=== PATIENT | female | born 1995 | race Caucasian/White ===

== ENCOUNTER 2019-09-30 23:00 | Emergency (ER) | payer OTHER ==
[2019-10-01 00:03] VITALS: BP 134/89; PULSE 94; RESP 18; TEMP 97.8
--- NOTE | 2019-10-01 01:35 | ED ---
General Adult HPI - General Chief complaint: [place]ick/Exposure Stated complaint: [facility]- blood in eye Time Seen by Provider: 10/01/19 00:23 Source: patient, RN notes reviewed, old records reviewed Mode of arrival: ambulatory Limitations: no limitations - History of Present Illness Initial comments: 24-year-old female patient presents to ED for evaluation of possible exposure to blood in her right eye. Patient reports that she was removing an IV from a recently patient and some sort of fluid came out and contacted her right eye. Patient reports that after she vigorously irrigated her eye for an extended period of time. Pt states that she has low concern for the patient having blood-borne pathogens. However she was still like them to be checked as well as herself. Declines prophylaxis. Denies any acute complaints. Systemic: Pt denies fatigue, fever/chills, rash. Pt denies weakness, night sweats, weight loss. Neuro: Pt denies headache, visual disturbances, syncope or pre-syncope. HEENT: Pt denies ocular discharge or irritation, otalgia, rhinorrhea, pharyngitis or notable lymphadenopathy. Cardiopulmonary: Pt denies chest pain, SOB, heart palpitations, dyspnea on exertion. Abdominal/GI: Pt denies abdominal pain, n/v/d. : Pt denies dysuria, burning w/ urination, frequency/urgency. Denies new onset urinary or bowel incontinence. MSK: Pt denies myalgia, loss of strength or function in extremities. Neuro: Pt denies new onset weakness, paresthesias. - Related Data Allergies Allergy/AdvReac Type Severity Reaction Status Date / Time No Known Allergies Allergy Verified 10/01/19 00:02 Review of Systems ROS Statement: Those systems with pertinent positive or pertinent negative responses have been documented in the HPI. ROS Other: All systems not noted in ROS Statement are negative. Past Medical History Past Medical History: No Reported History History of Any Multi-Drug Resistant Organisms: None Reported Past Surgical History: No Surgical Hx Reported Past Psychological History: No Psychological Hx Reported Smoking Status: Never smoker Past Alcohol Use History: None Reported Past Drug Use History: None Reported General Exam Limitations: no limitations Course Vital Signs 10/01/19 00:00 Temperature 97.8 F Pulse Rate 94 Respiratory 18 Rate Blood Pressure 134/89 O2 Sat by Pulse 97 Oximetry Medical Decision Making - Medical Decision Making 24-year-old female patient presents to ED for evaluation of possible exposure to blood in her right eye. Patient reports that she was removing an IV from a recently patient and some sort of fluid came out and contacted her right eye. Patient reports that after she vigorously irrigated her eye for an extended period of time. Pt states that she has low concern for the patient having blood-borne pathogens. However she was still like them to be checked as well as herself. Declines prophylaxis. Denies any acute complaints. PT VSS, afebrile. Physical exam displayed: Physical exam didn't display acute pathology. Patient declined further irrigation. Declines prophylaxis. Her blood was drawn. She'll be tested and they'll attempt to test the source. We'll turn your physician worse and otherwise will follow up with primary care provider. Case discussed with Dr. Forrester. Disposition Clinical Impression: Exposure to blood or body fluid Disposition: HOME SELF-CARE Condition: Stable Additional Instructions: Follow-up with primary care provider tomorrow. Return to ER if condition worsens in any way. Is patient prescribed a controlled substance at d/c from ED?: No Referrals: Zeinab Quinn DO [Primary Care Provider] - 1-2 days
== END 2019-10-01 01:41 | disposition home or self-care (01) ==
LOC: EC 23:00
DX: Z77.21 Contact with and (suspected) exposure to potentially hazardous body fluids (principal)
CPT/HCPCS: 99283

== ENCOUNTER → 2021-10-10 | Outpatient (CLI) | payer OTHER ==
--- NOTE | 2021-10-10 13:15 | US ---
EXAMINATION TYPE: US thyroid st tissue head/neck DATE OF EXAM: 10/10/2021 COMPARISON: NONE CLINICAL HISTORY: E07.9 ENLARGMENT Z86.39 GRAVES DISEASE. GLAND SIZE: Right Lobe: 5.9 x 1.8 x 1.6 cm Overall Parenchyma: grossly heterogeneous Left Lobe: 5.6 x 1.2 x 1.7 cm Overall Parenchyma: grossly heterogeneous Isthmus Thickness: 0.6 cm NODULES RIGHT: # of nodules measured on right: 0 LEFT: # of nodules measured on left: 0 ISTHMUS: # of nodules measured in the isthmus: 0 Bilateral neck scanned, no evidence of lymphadenopathy. IMPRESSION: Glandular enlargement and heterogeneity without distinct nodule.
== END | disposition home or self-care (01) ==
LOC: RADUSWWP 12:09
PROVIDERS: ATTEND Family Medicine
DX: E04.9 Nontoxic goiter, unspecified (principal); E07.89 Other specified disorders of thyroid
CPT/HCPCS: 76536

== ENCOUNTER 2022-03-27 12:05 | Emergency (ER) | payer MEDICAID, OTHER ==
[2022-03-27 12:33] VITALS: BP 148/84; PULSE 81; RESP 16; TEMP 98
[2022-03-27] MEDS ORDERED: ORPHENADRINE 30 MG/ML 2 ML VIAL IM STA (14:32)
[2022-03-27] MEDS ORDERED: KETOROLAC 15 MG/ML 1 ML VIAL IM STA (14:32)
--- NOTE | 2022-03-27 14:33 | ED ---
Back Pain HPI - General Chief Complaint: Back Pain/Injury Stated Complaint: Back injury Time Seen by Provider: 03/27/22 14:17 Source: patient, RN notes reviewed, old records reviewed Limitations: no limitations - History of Present Illness Initial Comments: 27-year-old female presents ambulatory with complaints of right buttock pain shooting down the right leg after lifting 135 pounds at the gym today at 11:30. Patient states that she felt a sharp pain to the buttock down the back of the thigh. It hurts worse when she sits on soft surfaces. Worse with bending over or to palpation. No previous injuries. MD Complaint: back pain -: hour(s) (3) Place: other (gym) Radiation: buttocks, right leg (thigh) Severity scale (1-10): 5 Quality: other (shooting) Consistency: constant Improves With: none Worsens With: movement, sitting upright, walking Context: while lifting ( lifting 135pounds) Associated Symptoms: denies other symptoms - Related Data Previous Rx's Medication Instructions Recorded Cyclobenzaprine [Flexeril] 10 mg PO TID PRN #15 tab 03/27/22 Ibuprofen 400 mg PO Q6HR PRN #30 tablet 03/27/22 Allergies Allergy/AdvReac Type Severity Reaction Status Date / Time No Known Allergies Allergy Verified 03/27/22 12:33 Review of Systems ROS Statement: Those systems with pertinent positive or pertinent negative responses have been documented in the HPI. ROS Other: All systems not noted in ROS Statement are negative. Past Medical History Past Medical History: No Reported History History of Any Multi-Drug Resistant Organisms: None Reported Past Surgical History: No Surgical Hx Reported Past Psychological History: No Psychological Hx Reported Smoking Status: Never smoker Past Alcohol Use History: None Reported Past Drug Use History: None Reported General Exam Limitations: no limitations General appearance: alert, in no apparent distress Head exam: Present: atraumatic Eye exam: Present: normal appearance. Absent: scleral icterus, conjunctival injection Respiratory exam: Present: normal lung sounds bilaterally. Absent: respiratory distress, wheezes, rales, rhonchi, stridor, chest wall tenderness, accessory muscle use, decreased breath sounds Cardiovascular Exam: Present: regular rate, normal heart sounds Right Hip exam: Present: tenderness (right buttock, hamstring, worsens with sitting) Upper Leg exam: Present: tenderness Neurovascular tendon exam: Present: no vascular compromise. Absent: extremity cold to touch, foot drop Gait: observed and limited by pain Back exam: Absent: tenderness, CVA tenderness (R), CVA tenderness (L), paraspinal tenderness, vertebral tenderness Neurological exam: Present: alert, oriented X3, CN II-XII intact, other (Antalgic) Psychiatric exam: Present: normal affect, normal mood Skin exam: Present: warm, dry, normal color. Absent: cyanosis, diaphoretic Course Vital Signs 03/27/22 12:31 Temperature 98 F Pulse Rate 81 Respiratory 16 Rate Blood Pressure 148/84 O2 Sat by Pulse 98 Oximetry Medical Decision Making - Medical Decision Making Patient presents with a deep buttock pain and posterior thigh pain after deadlifting 135 pounds at the gym today at 11:30. Patient states pain is sharp and goes down the leg causes numbness to her foot intermittently. This is likely piriformis muscle pain. She was given Norflex and Toradol with pain relief. She is ambulatory. She was directed to discontinue any strenuous activity including heavy lifting. Motrin and flexeril as needed for pain. Follow-up with orthopedics if pain persists. She is agreeable to this plan of care. Case discussed with Dr. Hinds Disposition Clinical Impression: Piriformis muscle pain Disposition: HOME SELF-CARE Condition: Good Instructions (If sedation given, give patient instructions): Muscle Strain (ED) Additional Instructions: Avoid heavy lifting or strenuous activity until pain resolves. Motrin as prescribed for the next 3-5 days. Flexeril as needed as a muscle relaxer however do not drink alcohol or operate heavy machinery when taking this medication. Ice packs to site for 20 minutes every 4 hours for next 2-3 days. Increase your fluid intake. Gentle stretching exercises are encouraged. Follow-up with orthopedics as needed. Prescriptions: Cyclobenzaprine [Flexeril] 10 mg PO TID PRN #15 tab PRN Reason: Muscle Spasm Ibuprofen 400 mg PO Q6HR PRN #30 tablet PRN Reason: Pain Is patient prescribed a controlled substance at d/c from ED?: No Referrals: Kathi King MD [Primary Care Provider] - 1-2 days Ewa Kathleen DO [Doctor of Osteopathic Medicine] - 1-2 days Time of Disposition: 14:59
== END 2022-03-27 15:28 | disposition home or self-care (01) ==
LOC: EC 12:05
DX: G57.01 Lesion of sciatic nerve, right lower limb (principal)
CPT/HCPCS: 99283; 96372 ×2; J2360; J1885

== ENCOUNTER 2022-04-06 07:34 | Emergency (ER) | payer MEDICAID, OTHER ==
[2022-04-06 07:39] VITALS: TEMP 98
[2022-04-06] MEDS ORDERED: dexAMETHasone 4 MG TAB PO STA (07:54)
[2022-04-06] MEDS ORDERED: LIDOCAINE VISCOUS 2% 15 ML CUP MUCOUS MEM ONE (07:54)
--- NOTE | 2022-04-06 08:18 | ED ---
General Adult HPI - General Chief complaint: Upper Respiratory Infection Stated complaint: COVID+,Poss Strep Throat Time Seen by Provider: 04/06/22 07:50 Source: patient, RN notes reviewed, old records reviewed Mode of arrival: ambulatory Limitations: no limitations - History of Present Illness Initial comments: Patient is a 27-year-old female with no significant past medical history who presents emergency Department complaining of a bad sore throat. She states she does have a bad history of strep throat and previous tracheitis. She did test positive for Covid earlier this morning. Presents over concern for the sore throat and her History. States it started with her other symptoms versus upper respiratory symptoms as well. Denies any fevers or chills. States the fever is severe. Presents for further evaluation at this time. - Related Data Home Medications Medication Instructions Recorded Confirmed Vienva 0.1-20mcg 1 tab PO HS 04/06/22 04/06/22 Previous Rx's Medication Instructions Recorded Amoxicillin 875 mg PO Q12HR 10 Days #20 tablet 04/06/22 Allergies Allergy/AdvReac Type Severity Reaction Status Date / Time No Known Allergies Allergy Verified 04/06/22 10:09 Review of Systems ROS Statement: Those systems with pertinent positive or pertinent negative responses have been documented in the HPI. Review of Systems: CONST: Denies fever EYES: Denies blurry vision ENT: Endorses nasal congestion, sore throat C/V: Denies Chest pain RESP: Denies shortness of breath GI: Denies abdominal pain : Denies dysuria SKIN: Denies rash. MSK: Denies joint pain. NEURO: Denies headache ROS Other: All systems not noted in ROS Statement are negative. Past Medical History Past Medical History: No Reported History History of Any Multi-Drug Resistant Organisms: None Reported Past Surgical History: No Surgical Hx Reported Past Psychological History: No Psychological Hx Reported Smoking Status: Never smoker Past Alcohol Use History: None Reported Past Drug Use History: None Reported General Exam - General Exam Comments Initial Comments: General: Appears in no acute distress. HEAD: Normal with no signs of head trauma. EYES: EOMI ENT: Erythematous posterior oropharynx with some exudates. Hearing grossly intact. Moist mucous membranes. RESPIRATORY: No respiratory distress C/V: Regular rate and rhythm. ABD: Nondistended EXT: Normal range of motion, no obvious deformity SKIN: No rashes or lesions observed on exposed skin. NEURO: Alert and oriented 4. Limitations: no limitations Course Vital Signs 04/06/22 04/06/22 04/06/22 07:37 08:00 10:28 Temperature 98 F Pulse Rate 106 H 78 Respiratory 16 18 16 Rate Blood Pressure 135/75 123/74 O2 Sat by Pulse 98 98 Oximetry Medical Decision Making - Medical Decision Making Based on the patient's presentation and physical exam, I'm concerned for sore throat likely secondary to low-grade. The patient is asking to be tested for strep throat. We'll test the patient. She'll be symptomatically treated with viscous lidocaine. Vital signs within acceptable limits and patient appears nontoxic otherwise. She was in agreement this plan. There was a delay as the strep throat swab that was initially sent was swab. Sample was reobtained and sent. Patient's strep throat swab was positive. I updated the patient. She'll be started on antibiotics. She was in agreement with this plan. Strict return precautions were discussed. We discussed quarantine considering her COVID-19 diagnosis. We discussed obtaining a pulse oximetry to monitor her oxygen levels. I will provide the patient with a prescription for amoxicillin. I instructed the patient to follow up with their PCP in the next 1-3 days. I explained that the patient should return to the emergency department if they experience any worsening symptoms. Strict return precautions were discussed with the patient. The patient expressed understanding of these instructions. I answered all questions that the patient had. The patient was discharged home in good condition with their prescriptions and follow up information. - Lab Data Lab Results 04/06/22 Range/Units 09:29 Group A Strep (PCR) DETECTED A (Not Detectd) Disposition Clinical Impression: COVID-19 virus infection, Strep pharyngitis Disposition: HOME SELF-CARE Condition: Good Instructions (If sedation given, give patient instructions): Strep Throat (ED), COVID-19 (Coronavirus Disease 2019) (ED) Prescriptions: Amoxicillin 875 mg PO Q12HR 10 Days #20 tablet Is patient prescribed a controlled substance at d/c from ED?: No Referrals: None,Stated [Primary Care Provider] - 1-2 days Time of Disposition: 10:05
[2022-04-06] MEDS ORDERED: AMOXICILLIN 875 MG TAB PO STA (10:12)
[2022-04-06 10:29] VITALS: BP 123/74; PULSE 78; RESP 16
== END 2022-04-06 10:29 | disposition home or self-care (01) ==
LOC: EC 07:34
DX: B34.2 Coronavirus infection, unspecified (principal); J02.0 Streptococcal pharyngitis
CPT/HCPCS: 87651; 99283; J8540

== ENCOUNTER → 2022-04-06 | Outpatient (CLI) | payer MEDICAID, OTHER | END | disposition home or self-care (01) | LOC: LABMAIN 00:44 | PROVIDERS: ATTEND Emergency Medicine | DX: Z11.59 Encounter for screening for other viral diseases (principal) | CPT/HCPCS: 87635 ==

== ENCOUNTER → 2022-12-11 | Outpatient (CLI) | payer MEDICAID | END | disposition home or self-care (01) | LOC: LABMAIN 02:49 | PROVIDERS: ATTEND Student in an Organized Health Care Education/Training Program | DX: Z36.85 Encounter for antenatal screening for Streptococcus B (principal) | CPT/HCPCS: 87430; 87651 ==